=== PATIENT | female | born 1985 | race Hispanic/Latino ===

== ENCOUNTER 2017-07-23 17:13 | Emergency (ER) | payer MEDICAID, SELFPAY ==
[~2017-07-23 17:13] MED LIST: ISOVUE-370 76%-LOCM 1 ML ONE; Iopamidol 370 76% 50 ML VIAL FS ONE
[2017-07-23] MEDS ORDERED: Ondansetron HCl/PF 4 MG/2 ML Vial ONE ×2 (17:44→21:57)
[2017-07-23 17:54] LABS: Bilirubin Negative (Negative); Blood, Urine Negative (Negative); Glucose, Urine (Dipstick) Negative (Negative); Ketone, Urine Trace mg/dL (Negative); Nitrite Negative (Negative); Protein, Urine (Dipstick) Trace mg/dL (Neg-Trace)
[2017-07-23 17:59] LABS: #Lymphocytes 1.4 thou/uL (1.20-3.40); #Monocytes 0.8 thou/uL (0.11-0.59); #Neutrophils 14.6 thou/uL (1.40-6.50); %Basophils 0.2 % (0.0-1.0); %Eosinophils 0.3 % (0.0-10.0); %Lymphocytes 8.3 % (21.0-51.0); %Monocytes 4.7 % (0.0-10.0); Hematocrit 45.1 % (36.0-47.0); Mean Platelet Volume 8.8 fL (7.4-10.4); Red Blood Cell (RBC) Count 4.51 mill/uL (4.20-5.40); White Blood Cell (WBC) Count 16.9 thou/uL (4.8-10.8)
[2017-07-23 18:33] LABS: ALT (SGPT) 12 U/L (8-55); AST (SGOT) 14 U/L (5-34); Alkaline Phosphatase 135 U/L (40-150); Anion Gap 13 mmol/L (10-20); BUN (Urea Nitrogen) 12 mg/dL (7.0-18.7); Bilirubin, Total 0.7 mg/dL (0.2-1.2); Calc. Creatinine Clearance 0 mL/min (70-130); Calcium 8.9 mg/dL (7.8-10.44); Carbon Dioxide 23 mmol/L (22-29); Chloride 102 mmol/L (98-107); Estimated GFR-MDRD Greater than 90; Globulin 3.3 g/dL (2.4-3.5); Protein, Total 7.4 g/dL (6.0-8.3)
[2017-07-23] MEDS ORDERED: Ondansetron ODT 4 MG TAB ONE (19:56)
--- NOTE | 2017-07-23 22:38 | ULT ---
PELVIC ULTRASOUND: Technique: Transabdominal and endovaginal ultrasound of the pelvis performed. History: Pelvic pain, left lower quadrant pain. FINDINGS: Patient is post hysterectomy. Neither ovary is identified. Peristalsis bowel seen in the pelvic. No fluid or mass lesion seen. IMPRESSION: Post hysterectomy. Neither ovary identified. No evidence of mass or abnormality. POS: [facility]
--- NOTE | 2017-07-23 22:56 | CT ---
CT ABDOMEN AND PELVIS WITH CONTRAST: Technique: Multiple axial tomograms were obtained through the abdomen and pelvis with IV enhancement. Oral contrast was given. History: Abdominal pain with nausea and vomiting. FINDINGS: Lung bases are clear. The liver, spleen, and pancreas unremarkable. Stomach and duodenum unremarkable. The gallbladder is mildly distended. No pericholecystic edema seen. No biliary duct dilatation identi fied. Adrenal glands and kidneys unremarkable. Small bowel loops normal caliber. The appendix appears normal. Colon is nondistended and not adequate ly evaluated. No evidence of diverticulitis or other chronic inflammatory process. No adenopathy identified. Images through the pelvis show evidence of hysterectomy. Residual left ovary is identified and appear s unremarkable. IMPRESSION: 1. The gallbladder is mildly distended. Consider gallbladder ultrasound as indicated. 2. CT abdomen and pelvis otherwise unremarkable with no acute process identified. POS: [facility]
[2017-07-23] MEDS ORDERED: Acetaminophen 325 MG Suppository ONE (23:39)
[2017-07-23] MEDS ORDERED: Acetaminophen 325 MG TAB ONE (23:40)
== END 2017-07-23 23:49 | disposition home or self-care (01) ==
LOC: ERS 17:13
DX: K66.0 Peritoneal adhesions (postprocedural) (postinfection) (principal); D64.9 Anemia, unspecified; F41.9 Anxiety disorder, unspecified; G43.909 Migraine, unspecified, not intractable, without status migrainosus
CPT/HCPCS: 74177; 76856; 80053; 81003; 85025; 96361; 96374; J2405; Q0162

== ENCOUNTER 2019-01-22 03:22 | Emergency (ER) | payer BC, OTHER ==
[2019-01-22] MEDS ORDERED: Ondansetron ODT 8 MG TAB ONE (03:39)
[2019-01-22] MEDS ORDERED: Promethazine HCl 25 MG/ML VIAL ONE (04:34)
== END 2019-01-22 05:10 | disposition home or self-care (01) ==
LOC: ERS 03:22
DX: R11.2 Nausea with vomiting, unspecified (principal); R10.32 Left lower quadrant pain
CPT/HCPCS: 96372; J2550

== ENCOUNTER 2024-03-20 16:38 | Emergency (ER) | payer BC, SELFPAY | END 2024-03-20 18:00 | disposition home or self-care (01) | LOC: ERS 16:38 | DX: T78.1XXA Other adverse food reactions, not elsewhere classified, initial encounter (principal); R21 Rash and other nonspecific skin eruption; M79.7 Fibromyalgia; Z79.899 Other long term (current) drug therapy | CPT/HCPCS: 99282; J7512 ==